=== PATIENT | female | born 1980 | race Caucasian/White ===

== ENCOUNTER 2025-06-16 09:42 | Emergency (ER) | payer OTHER, SELFPAY ==
--- NOTE | ~2025-06-16 | CT_ITS ---
EXAMINATION: CT HEAD WITHOUT CONTRAST CLINICAL INFORMATION: fall, head injury COMPARISON: None available. TECHNIQUE: Contiguous axial imaging was performed from the skull base to vertex without intravenous administration of contrast. This CT examination was performed using dose optimization techniques as appropriate, variously including the following: *Automated exposure control *Adjustment of mA and/or kV according to patient size (this includes techniques or standardized protocols for targeted exams where dose is matched to indication/reason for exam; i.e. extremities or head) *Use of iterative reconstruction technique DLP: 566 mGy-cm FINDINGS: Soft tissue contusion, left frontal soft tissue scalp. No acute cortical disruption in the bony calvarium. There is a 3 mm partially calcified extra-axial abnormality along the left frontal convexity. No acute intracranial hemorrhage, mass effect, midline shift, hydrocephalus or herniation. Louis-white matter differentiation is normal. Posterior cranial fossa contents demonstrated no gross hemorrhage or mass effect. Normal position of the cerebellar tonsils. Sellar/suprasellar region demonstrated no gross masses. No air-fluid levels in the paranasal sinuses. For pneumatization of the frontal sinuses. Tympanic cavities and mastoid air cells are aerated. No hematoma or gross masses in the intraconal or extraconal compartments of the orbits. CT/CT head/brain wo IV con IMPRESSION: No acute fracture, bony calvarium. No acute intracranial hemorrhage. Probable 3 mm partially calcified meningioma versus small enostosis, left frontal convexity. Electronically signed by: Srikanth Low MD 06/16/2025 10:57 AM EDT
[2025-06-16 09:53] VITALS: BP 150/81; PULSE 77; PULSE 80; RESP 16; TEMP 36.8; O2SAT 100; O2SAT 98; BMI 32.0
--- NOTE | 2025-06-16 10:07 | ED.HEATRA ---
HPI - Head Injury General Chief complaint: Head Injury Stated complaint: head injury Time Seen by Provider: 06/16/25 10:01 Source: patient Mode of arrival: ambulatory Limitations: no limitations History of Present Illness ED Provider: Suzy Rachel NP HPI Narrative: Patient is a 44-year-old female who presents emergency department for evaluation. She was carrying something large down for outdoor stairs to prepare for ataxia, reports that she lost her footing on wobbly step ultimately falling down 4 stairs with head strike down to the concrete. No loss of consciousness. No use of anticoagulants or known coagulation disorders. Sustained a hematoma to the left frontotemporal region. Took ibuprofen 600 mg prior to arrival with some improvement in headache. Contact your primary care doctor's office and was advised that due to the hematoma she should seek evaluation in the emergency department. Denies headache, dizziness, lightheadedness, vision changes, neck pain, neck stiffness, numbness or tingling of the extremities, bladder bowel dysfunction. Related Data Allergies Allergy/AdvReac Type Severity Reaction Status Date / Time No Known Allergies Allergy Verified 06/16/25 09:54 Review of Systems Review of Systems: Yes all other systems are reviewed and are negative [facility] Past Medical History Attestation statement: The following information was validated with the patient. Source: old records reviewed Social History Social History Advance Directives: No Advance Directives Information Provided: No Physical Exam Vital Signs: Vital Signs: Last Vital Signs Temp 98.2 F 06/16/25 09:53 Pulse 80 06/16/25 09:53 Resp 16 06/16/25 09:53 BP 150/81 H 06/16/25 09:53 Pulse Ox 100 06/16/25 09:53 O2 Del Method Room Air 06/16/25 09:53 BMI result Body Mass Index 32.0 Appearance: Alert.?Oriented to person, place and time. No acute distress.?Normal affect. Head: Normocephalic, left frontotemproal hematoma. Eyes: Pupils equal, round and reactive to light. EOMI. Conjunctiva and sclera normal? No Bagley sign noted. No raccoon eyes noted ENT: No septal hematoma, nares patent bilaterally. External auditory canal normal tympanic membrane pearly lama and intact bilaterally. Dentition normal, no fractured teeth. No lesions or lacerations of oropharynx. Uvula midline. Moist mucous membranes. Neck: Normal inspection.? Neck supple.??No palpable tenderness, step-off, deformities. CVS: Heart sounds normal. Normal heart rate and rhythm.? Pulses normal.?? Respiratory: No respiratory distress.? Lung sounds clear to auscultation bilaterally?? Abdomen: Soft and non-tender. Normoactive bowel sounds. ?? Skin: Skin warm and dry.? Normal skin color.? Normal skin turgor.?? Extremities: No lower extremity edema.? Neuro: Moves all extremities spontaneously. Sensation intact bilaterally. CN II-XII intact. No focal neuro deficits. Course Reevaluation(s) Reevaluation #1: CT imaging without evidence of acute intracranial pathology; no intracranial hemorrhage, acute fracture. There is visualization of the scalp hematoma. Patient made aware of incidental finding of probable 3 mm partially calcified meningioma versus small and acidosis to the left frontal convexity. I did review this with my attending Dr. Linares given location and injury today. Feels strongly that this is not to be of concern for ICH, may follow up outpatient with primary care doctor. These findings were discussed with patient, all questions were answered. Patient has been given strict return precautions. Stable for discharge. Ambulatory with a steady gait and remains without any focal neurological deficits. Time: 11:32 Medical Decision Making Medical Decision Making MDM Narrative: Patient is a 44-year-old female with no reported past medical history who presents emergency department for evaluation after mechanical trip and fall with resultant head injury as per HPI sustaining a hematoma to the left frontotemporal. No active bleeding. Based on [place] CT head via, unnecessary to CT patient feels very strongly that having 1 obtained as advised by her primary care doctor's office. We discussed risk versus benefits of radiation, she elects to move forward with CT imaging. She has no focal neurological deficits. Low clinical suspicion for ICH, SDH, skull fracture. Her cervical spine examination is benign, would defer imaging of the CT spine at this time. Differential Diagnosis Differential Diagnoses: The differential diagnosis associated with the presentation includes (See narrative above) Admission/Observation Consideration of admission/observation: Escalation of care including admission/observation considered (See narrative above) Radiology Impression Discussion of test interpretation with radiology: I have reviewed the radiologist's reading. Radiologist Impression: CT/CT head/brain wo IV con IMPRESSION: No acute fracture, bony calvarium. No acute intracranial hemorrhage. Probable 3 mm partially calcified meningioma versus small enostosis, left frontal convexity. Independent Historian Clinical information obtained from an independent historian. History obtained from or confirmed by: Parent Prescription Management I considered prescription management with: Pain Medication (Acetaminophen/ibuprofen) Discharge Plan Discharge Clinical Impression: Abnormal CT of the head Acute head injury without loss of consciousness Qualifiers: Encounter type: initial encounter Qualified Code(s): S09.90XA - Unspecified injury of head, initial encounter Patient Disposition: Home, Self-Care Instructions: Concussion (ED), Head Injury (ED) Additional Instructions: As discussed, there was no evidence of bleeding into the brain resultant from your fall today which is very reassuring. No evidence of skull fracture. You do have a hematoma meeting a raised bruise to the front of your scalp which is visible. It is important that you rest over the next few days, apply ice for 10-15 minutes 4-6 times daily. You can take ibuprofen 200 mg, 3 tablets (600mg) every 6-8 hours as needed for pain, in addition to Tylenol 500 mg, 2 tablets (1,000mg) every 4-6 hours as needed for pain, but not to exceed 3 doses daily (3,000mg).? After any head injury no matter how minor people can develop symptoms consistent with a concussion, I have provided you discharge instructions in regards to symptoms that can be associated with concussion as discussed this can include headaches, dizziness, ?brain fog?, confusion, nausea, vomiting. You may return to emergency department with any new or significantly worsening symptoms or concerns. There was an incidental finding in your CT scan, a calcified lesion which may be a meningioma (benign tumor) or possibly a calcified area of bone in the skull. It is advised that you follow-up with your primary care doctor in regards to this. CT/CT head/brain wo IV con IMPRESSION: No acute fracture, bony calvarium. No acute intracranial hemorrhage. Probable 3 mm partially calcified meningioma versus small enostosis, left frontal convexity. Referrals: Mikki Galindo MD [Primary Care Provider, Internal Medicine] Print Language: [place]
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
[2025-06-16 11:57] VITALS: BP 150/81; PULSE 80; RESP 16; TEMP 36.8; O2SAT 100
== END 2025-06-16 11:58 | disposition home or self-care (01) ==
PROVIDERS: Emergency Provider Emergency Medicine; PCP Internal Medicine
DX: S09.90XA Unspecified injury of head, initial encounter (principal); R93.0 Abnormal findings on diagnostic imaging of skull and head, not elsewhere classified; W10.8XXA Fall (on) (from) other stairs and steps, initial encounter; Y93.9 Activity, unspecified; Y92.9 Unspecified place or not applicable; Y99.9 Unspecified external cause status
CPT/HCPCS: 70450; 99282; 99284

== ENCOUNTER → 2025-06-16 10:20 | Outpatient (BNV) | payer OTHER, SELFPAY | PROVIDERS: Emergency Provider Emergency Medicine Emergency Medical Services; PCP Internal Medicine; Visit Provider Radiology Diagnostic Radiology | DX: S00.03XA Contusion of scalp, initial encounter (principal) | CPT/HCPCS: 70450 ==